=== PATIENT | female | born 1965 | race Caucasian/White ===

== ENCOUNTER 2019-07-09 08:36 | Outpatient (CLI) | payer BC, SELFPAY ==
--- NOTE | 2019-07-09 11:00 | NEURO_ITS ---
Patient Number: [id number] Impression: # Complains of upper extremity discomfort. # Left ulnar neuropathy across the elbow. # No Carpal Tunnel Syndrome. # Normal needle/EMG exam. Nerve Conduction Studies Anti Sensory Summary Table Stim Site NR Peak (ms) P-T Amp (?V) Site1 Site2 Delta-P (ms) Dist (cm) Martell (m/s) Left Median Anti Sensory (2-3nd Digit) Wrist 2.9 89.5 Wrist 2-3nd Digit 2.9 14.0 48 Wrist 3.0 111.5 Wrist 2-3nd Digit 2.9 14.0 48 Right Median Anti Sensory (2-3nd Digit) Wrist 2.8 76.6 Wrist 2-3nd Digit 2.8 14.0 50 Wrist 2.8 72.3 Wrist 2-3nd Digit 2.8 14.0 50 Left Radial Anti Sensory (Base 1st Digit) Wrist 2.0 32.3 Wrist Base 1st Digit 2.0 0.0 Right Radial Anti Sensory (Base 1st Digit) Wrist 2.4 28.2 Wrist Base 1st Digit 2.4 0.0 Left Ulnar Anti Sensory (5th Digit) Wrist 2.7 61.8 Wrist 5th Digit 2.7 14.0 52 Right Ulnar Anti Sensory (5th Digit) Wrist 2.5 73.4 Wrist 5th Digit 2.5 14.0 56 Motor Summary Table Stim Site NR Onset (ms) O-P Amp (mV) Site1 Site2 Delta-0 (ms) Dist (cm) Martell (m/s) Left Median Motor (Abd Poll Brev) Wrist 3.1 3.0 Elbow Wrist 5.3 29.0 55 Elbow 8.4 4.4 Right Median Motor (Abd Poll Brev) Wrist 3.4 2.2 Elbow Wrist 4.2 26.0 62 Elbow 7.6 1.7 Left Ulnar Motor (Abd Dig Minimi) Wrist 2.9 6.4 A Elbow Wrist 5.7 28.0 49 A Elbow 8.6 4.2 B Elbow Wrist 3.4 23.0 68 B Elbow 6.3 4.1 Right Ulnar Motor (Abd Dig Minimi) Wrist 2.7 4.4 A Elbow Wrist 4.8 29.0 60 A Elbow 7.5 3.9 F Wave Studies NR F-Lat (ms) L-R F-Lat (ms) Left Median (Mrkrs) (Abd Poll Brev) 27.13 1.55 Right Median (Mrkrs) (Abd Poll Brev) 28.67 1.55 Left Ulnar (Mrkrs) (Abd Dig Min) 28.17 0.95 Right Ulnar (Mrkrs) (Abd Dig Min) 27.21 0.95 EMG Side Muscle Nerve Root Ins Act Fibs Amp Dur Recrt Comment Right 1stDorInt Ulnar C8-T1 Nml Nml Nml Nml Nml Right Ext Indicis Radial (Post Int) C7-8 Nml Nml Nml Nml Nml Right Ext Digitorum Radial (Post Int) C7-8 Nml Nml Nml Nml Nml Right BrachioRad Radial C5-6 Nml Nml Nml Nml Nml Right PronatorTeres Median C6-7 Nml Nml Nml Nml Nml Right Abd Poll Brev Median C8-T1 Nml Nml Nml Nml Nml Left 1stDorInt Ulnar C8-T1 Nml Nml Nml Nml Nml Left Ext Indicis Radial (Post Int) C7-8 Nml Nml Nml Nml Nml Left Ext Digitorum Radial (Post Int) C7-8 Nml Nml Nml Nml Nml Left BrachioRad Radial C5-6 Nml Nml Nml Nml Nml Left PronatorTeres Median C6-7 Nml Nml Nml Nml Nml Left Abd Poll Brev Median C8-T1 Nml Nml Nml Nml Nml MTDD
== END 2019-07-09 08:37 | disposition home or self-care (01) ==
LOC: ANHNEURO 08:38
PROVIDERS: PCP Family Medicine; Visit Provider Physician Assistant
DX: G56.22 Lesion of ulnar nerve, left upper limb (principal)
CPT/HCPCS: 95886; 95911

== ENCOUNTER 2020-12-17 15:01 | Emergency (ER) | payer BC, SELFPAY ==
[2020-12-17 15:05] VITALS: PULSE 80; RESP 18; TEMP 36.3; O2SAT 100
--- NOTE | 2020-12-17 15:23 | ECG_ITS ---
Measurements Intervals [place] Rate: 75 P: 52 CO: 150 QRS: 54 QRSD: 84 T: 62 QT: 360 QTc: 402 Interpretive Statements SINUS RHYTHM BASELINE ARTIFACT- I, II, III, AVR, AVF NORMAL ECG Electronically Signed On 12-19-2020 7:49:08 CDT by Nick Collins D.O.
[2020-12-17] MEDS: ALPRAZolam (*CRX) 0.5 MG TABLET PO (15:38)
[2020-12-17 15:56] LABS: Basophils Absolute Auto 0.03 K/mm3 (0.00-0.10); Basophils Percent Auto 0.7 % (0.0-1.0); Eosinophils Absolute Auto 0.09 K/mm3 (0.02-0.50); Eosinophils Percent Auto 2.1 % (1.0-6.0); Hematocrit 43.5 % (35.0-49.0); Hemoglobin 14.8 g/dL (12.0-15.0); Immature Granulocyte Absolute 0.01 K/mm3 (0.00-0.00); Immature Granulocyte Percent A 0.2 % (0.0-0.0); Lymphocytes Absolute Auto 1.23 K/mm3 (1.10-4.50); Lymphocytes Percent Auto 28.9 % (18.0-42.0); Mean Corpuscular Hemoglobin 29.3 pg (27.0-31.0); Mean Corpuscular Volume 86.1 fL (78.0-102.0); Mean Platelet Volume 9.8 fl (9.2-11.8); Monocytes Absolute Auto 0.32 K/mm3 (0.10-0.90); Monocytes Percent Auto 7.5 % (2.0-11.0); Neutrophils Absolute Auto 2.6 K/mm3 (1.7-7.2); Neutrophils Percent Auto 60.6 % (50.0-70.0); Platelet Count Result 194 K/mm3 (150-420); Red Blood Count 5.05 M/mm3 (4.20-5.40); Red Cell Distribution Width 11.8 % (11.6-14.4); White Blood Count 4.3 K/mm3 (4.8-10.8)
[2020-12-17 16:14] LABS: D Dimer 0.22 mg/L (0.19-0.50)
[2020-12-17 16:22] LABS: Alanine Aminotransferase 23 U/L (14-59); Albumin Level 3.9 g/dL (3.4-5.0); Alkaline Phosphatase 66 U/L (46-116); Anion Gap 9 mmol/L (8-16); Aspartate Amino Transferase 17 U/L (15-37); Bilirubin,Total 0.5 mg/dL (0.00-1.00); Blood Urea Nitrogen 16 mg/dL (7-18); Calcium 9.6 mg/dL (8.5-10.1); Carbon Dioxide 30 mmol/L (21-32); Chloride 104 mmol/L (98-108); Estimated CRCL calculation 54 ml/min; Estimated Glomerular Filt Rate 56; Glucose 91 mg/dL (70-99); Lipase 127 U/L (73-393); NT Pro B Type Natriuretic Pept 189 pg/mL (0-125); Osmolality Calculated 297 mOsm/kg (285-295); Potassium 3.5 mmol/L (3.5-5.1); Sodium 143 mmol/L (136-145); Total Protein 6.7 g/dL (6.4-8.2)
[2020-12-17 16:38] LABS: Thyroid Stimulating Hormone 1.11 uIU/mL (0.36-3.74)
--- NOTE | 2020-12-17 16:41 | ED.CHESTPAIN ---
HPI - Chest Pain General Chief Complaint: Chest Pain Stated Complaint: chest pain Source: patient and family Mode of arrival: ambulatory Limitations: no limitations History of Present Illness HPI narrative: this is a 55-year-old female with a history of anxiety presents with chest discomfort and epigastric discomfort patient says she has a history of mitral valve prolapse and does occasionally have episodes of palpitations with a racing heart rate. Currently there is some some chest discomfort that rates at about a 2/10 in, is a typical non reproducible some tenderness in the epigastric area no shortness of breath no fever chills nonsmoker no family history of heart attacks. Currently there is no fever chills no nausea vomiting no dysuria no hematuria no abdominal pain no flank pain. complaint: chest discomfort Onset (ago): day(s) Timing of current episode: episodic Prior episodes: Yes Onset: during rest Pain location: substernal and epigastric Pain radiation: none Severity: mild Related Data Allergies Allergy/AdvReac Type Severity Reaction Status Date / Time No Known Allergies Allergy Unknown Unverified 12/17/20 15:21 Review of Systems Review of Systems: All systems reviewed & are unremarkable except as noted in HPI and below PMFSH Past Medical History Medical History Anxiety Family History Family History Mother Family history of cardiovascular disease, Onset Age: 70 Sibling Carcinoma of colon, Onset Age: 30 Grandparent Family history of malignant neoplasm of breast Other Family history of mental disorder Social History Social History Smoking status: Never smoker Alcohol intake: current Exam Const: General: no acute distress and alert Orientation/consciousness: patient oriented x3 Limitations: altered mental status HENMT: Head: normal to inspection Eyes: Conjunctivae: conjunctivae normal Pupils: Equal, round and reactive pupils present Cardio: Rate: regular rate Rhythm: regular rhythm GI: GI Palp: Yes Soft to palpation Percussion: Yes normal to percussion : General: Yes no CVA tenderness Skin: General skin exam: normal color Rashes: no rashes Neuro: General: patient oriented x3 and moves all extremities Extrem: General: normal to inspection and no pedal edema Psych: Mental Status: mental status grossly normal Affect: normal affect and Anxious affect present Course Course Emergency Course: Labs reviewed with some patient and with her and as well as EKG advised to take her current dose of Xanax as needed and follow up with her primary care physician if symptoms persist or worsen. Vital Signs Vital signs: Vital Signs Temperature 36.3 C L 12/17/20 15:05 Pulse Rate 80 12/17/20 15:05 Respiratory Rate 18 12/17/20 15:05 Pulse Oximetry 100 12/17/20 15:05 Temperature 36.3 C L 12/17/20 15:05 Pulse Rate 80 12/17/20 15:05 Respiratory Rate 18 12/17/20 15:05 Pulse Oximetry 100 12/17/20 15:05 MDM - Chest Pain Lab Data Result diagrams: 12/17/20 15:30 12/17/20 15:30 Labs: Lab Results 12/17/20 12/17/20 12/17/20 Range/Units 15:30 15:30 15:30 WBC 4.3 L (4.8-10.8) K/mm3 RBC 5.05 (4.20-5.40) M/mm3 Hgb 14.8 (12.0-15.0) g/dL Hct 43.5 (35.0-49.0) % MCV 86.1 (78.0-102.0) fL MCH 29.3 (27.0-31.0) pg MCHC 34.0 (32.0-36.0) g/dL RDW 11.8 (11.6-14.4) % Plt Count 194 (150-420) K/mm3 MPV 9.8 (9.2-11.8) fl Immature Gran % (Auto) 0.2 H (0.0-0.0) % Neut % (Auto) 60.6 (50.0-70.0) % Lymph % (Auto) 28.9 (18.0-42.0) % [place] % (Auto) 7.5 (2.0-11.0) % Eos % (Auto) 2.1 (1.0-6.0) % Baso % (Auto) 0.7 (0.0-1.0) % Lymph # (Auto) 1.23 (1.10-4.50) K/mm3 [place] # (Auto) 0.32
[2020-12-17 16:51] VITALS: BP 128/78; PULSE 79; RESP 16; TEMP 36.6; O2SAT 100
== END 2020-12-17 17:00 | disposition home or self-care (01) ==
PROVIDERS: Emergency Provider Emergency Medicine
DX: R07.89 Other chest pain (principal); F41.9 Anxiety disorder, unspecified
CPT/HCPCS: 36415; 80053; 83690; 83880; 84443; 84484; 85025; 85380; 93005; 99282; 99284; A9270

== ENCOUNTER 2021-01-11 15:15 | Outpatient (CLI) | payer BC, SELFPAY ==
--- NOTE | ~2021-01-11 | MM_ITS ---
EXAMINATION: MM screening [facility] BI w razia HISTORY: Screening mammogram TECHNIQUE: Craniocaudal and mediolateral oblique 3-D tomosynthesis images were obtained and synthetic 2-D images were generated. CAD analysis was submitted and interpreted. COMPARISON: 02/14/2018, 01/31/2018, 06/16/2014 BREAST PARENCHYMAL COMPOSITION: The breasts are heterogeneously dense, which may obscure small masses . FINDINGS: There is no evidence of suspicious mass, calcification, or architectural distortion to sugg est malignancy in either breast. There has been no suspicious interval change. IMPRESSION: 1. No mammographic evidence of malignancy. 2. Recommend routine screening mammography in one year. BI-RADS Category 1: Negative Reviewed, dictated and finalized at location A. 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
== END 2021-01-11 15:16 | disposition home or self-care (01) ==
LOC: ANHIMG 15:17
PROVIDERS: PCP Family Medicine; Visit Provider Physician Assistant
DX: Z12.31 Encounter for screening mammogram for malignant neoplasm of breast (principal)
CPT/HCPCS: 77063; 77067

== ENCOUNTER 2022-03-05 00:37 | Day surgery (SDC) | payer OTHER, SELFPAY ==
[2022-02-21 13:40] VITALS: BMI 21.4
[2022-03-05 06:52] VITALS: BP 123/73; PULSE 76; RESP 18; TEMP 36.4; O2SAT 100
[2022-03-05] MEDS: LACTATED RINGERS 1,000 ML 150 ML IV CONT (07:03)
--- NOTE | 2022-03-05 07:22 | PM.HPGS ---
History of Present Illness History of Present Illness Consent: Risks, benefits, and alternatives have been discussed and questions answered. Patient agrees to proceed with procedure. Chief complaint: neoplasm screening, fam hx colon cancer Narrative: Trisha Rg is a 56 year old female Presents for screening colonoscopy. Patient's current weight appetite and bowel movements are normal. She denies abdominal pain. She has had no bleeding. Family history is significant that her sister has had colon cancer. Previous colonoscopy 2014 was unremarkable aside from a small lymphoid aggregate type polyp. Review of Systems Review of Systems: Review of systems noncontributory. [facility] Past Medical History Medical History Anxiety Family History Family History Mother Family history of cardiovascular disease, Onset Age: 70 Sibling Carcinoma of colon, Onset Age: 30 Grandparent Family history of malignant neoplasm of breast Other Family history of mental disorder Social History Social History Smoking status: Never smoker Alcohol intake: current Substance use type: does not use Living arrangements: with family Spiritual care concerns: No Meds Home Medications and Allergies Home Medications Medication Instructions Recorded Confirmed Type cetirizine 10 mg capsule (Zyrtec) 10 mg PO DAILY PRN Allergy Symptoms 10/30/21 02/21/22 History alprazolam 0.5 mg tablet 0.5 mg PO TID PRN Anxiety #90 tabs 11/21/21 02/21/22 Rx sodium,potassium,mag sulfates 17.5 See Rx Instructions PO .COMPLEX 01/16/22 Rx gram-3.13 gram-1.6 gram oral soln #354 mL (Suprep Bowel Prep Kit) medroxyprogesterone 2.5 mg tablet 2.5 mg PO DAILY #90 tabs 01/18/22 02/21/22 Rx estradiol 0.5 mg tablet 0.5 mg PO DAILY #90 tabs 01/19/22 02/21/22 Rx Allergies Allergy/AdvReac Type Severity Reaction Status Date / Time No Known Allergies Allergy Unknown Verified 03/05/22 06:51 Vital Signs Vital Signs - 24 hr 03/05/22 06:52 Temperature 97.6 F Pulse Rate 76 Respiratory Rate 18 Blood Pressure 123/73 Pulse Oximetry 100 Oxygen Delivery Room Air Exam Narrative: Physical exam reveals patient to be alert. Vital signs stable. HEENT exam is unremarkable. Patient is anicteric. Lungs are clear to auscultation and percussion. Heart is without murmur or extra sounds. Abdomen bowel sounds are present soft nontender with no hepatosplenomegaly. Digital external rectal exam is normal. Assessment and Plan Assessment and plan (1) Family history of colon cancer: Code(s): Z80.0 - Family history of malignant neoplasm of digestive organs Status: Acute Assessment and Plan: Patient has a family history of colon cancer in her sister. Plan for surveillance colonoscopy now. Consider this at intervals in the future.
--- NOTE | 2022-03-05 07:56 | P.PNAN_ITS ---
Anes - Initial Pre Proc Eval Procedure: Operation Date: 03/05/22 08:00 Proposed Procedures p Screening Colonoscopy - Brannon Stoddard MD Date/Time: 03/05/22 07:56 Surgeon: Brannon Stoddard MD Pre Op Diagnosis: neoplasm screening, fam hx colon cancer Patient Data Age: 56 Gender: F Height: 1.7 m Weight: 62.7 kg Last Vital Signs Temp 97.6 F 03/05/22 06:52 Pulse 76 03/05/22 06:52 Resp 18 03/05/22 06:52 BP 123/73 03/05/22 06:52 Pulse Ox 100 03/05/22 06:52 O2 Del Method Room Air 03/05/22 06:52 Allergies Allergy/AdvReac Type Severity Reaction Status Date / Time No Known Allergies Allergy Unknown Verified 03/05/22 06:51 Home Medications Medication Instructions Recorded Confirmed Type cetirizine 10 mg capsule (Zyrtec) 10 mg PO DAILY PRN Allergy Symptoms 10/30/21 02/21/22 History alprazolam 0.5 mg tablet 0.5 mg PO TID PRN Anxiety #90 tabs 11/21/21 02/21/22 Rx sodium,potassium,mag sulfates 17.5 See Rx Instructions PO .COMPLEX 01/16/22 Rx gram-3.13 gram-1.6 gram oral soln #354 mL (Suprep Bowel Prep Kit) medroxyprogesterone 2.5 mg tablet 2.5 mg PO DAILY #90 tabs 01/18/22 02/21/22 Rx estradiol 0.5 mg tablet 0.5 mg PO DAILY #90 tabs 01/19/22 02/21/22 Rx Patient hx anesthesia problems: none Family hx anesthesia problems: none Results Review: All pre-operative results and documents have been reviewed as part of the pre- operative evaluation. [facility] Past Medical History Medical History Anxiety Family History Family History Mother Family history of cardiovascular disease, Onset Age: 70 Sibling Carcinoma of colon, Onset Age: 30 Grandparent Family history of malignant neoplasm of breast Other Family history of mental disorder Social History Social History (Reviewed 10/30/21 @ 13:07 by EVAN Lange Smoking status: Never smoker Alcohol intake: current Substance use type: does not use Living arrangements: with family Spiritual care concerns: No Anes - Eval Final PreProcedure Day of Procedure 03/05/22 07:56 Patient weight: normal Heart: regular rate and rhythm Lungs: clear to auscultation Airway: Mallampati scale class II Neurological: alert and oriented Last oral intake: >/= 8 hours ASA classification: II Emergent: no Anesthetic plan: proceed Anesthesia type and monitoring: general GIVS and standard monitoring Results Review: All pre-operative results and documents have been reviewed as part of the pre- operative evaluation. Informed Consent: The patient's anesthetic plan and its attendant risks and benefits were discussed with the patient/family/POA. Questions were solicited and answers provided to the satisfaction of the patient/family/POA.
[2022-03-05 08:22] VITALS: BP 97/62; PULSE 71; RESP 18; O2SAT 98
[2022-03-05 08:32] VITALS: BP 85/63; PULSE 73; RESP 18; O2SAT 100
[2022-03-05 08:39] VITALS: BP 108/71; PULSE 73; RESP 18; O2SAT 100
== END 2022-03-05 08:50 | disposition home or self-care (01) ==
PROVIDERS: PCP Emergency Medicine; Visit Provider Internal Medicine Gastroenterology
PROC: 0DJD8ZZ Inspection of Lower Intestinal Tract, Via Natural or Artificial Opening Endoscopic (ICD-10-PCS; CPT 45378; principal; 2022-03-05 08:00)
DX: Z12.11 Encounter for screening for malignant neoplasm of colon (principal); Z80.0 Family history of malignant neoplasm of digestive organs; F41.9 Anxiety disorder, unspecified
CPT/HCPCS: 45378; J2704; J7120

== ENCOUNTER → 2022-04-24 13:41 | Outpatient (CLI) | payer OTHER, SELFPAY ==
--- NOTE | ~2022-04-24 | MM_ITS ---
EXAMINATION: MM screening [facility] BI w razia HISTORY: Screening mammogram TECHNIQUE: Craniocaudal and mediolateral oblique 3-D tomosynthesis images were obtained and synthetic 2-D images were generated. CAD analysis was submitted and interpreted. COMPARISON: 01/11/2021, 12/07/2017, 01/31/2018 BREAST PARENCHYMAL COMPOSITION: The breasts are heterogeneously dense, which may obscure small masses . FINDINGS: No suspicious mass, calcification, or architectural distortion are identified in either thalia ast to suggest malignancy. There has been no suspicious interval change. IMPRESSION: 1. No mammographic evidence of malignancy. 2. Recommend routine screening mammography in one year. BI-RADS Category 1: Negative Reviewed, dictated and finalized at location A. 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
== END ==
PROVIDERS: PCP Emergency Medicine; Visit Provider Physician Assistant
DX: Z12.31 Encounter for screening mammogram for malignant neoplasm of breast (principal); Z80.0 Family history of malignant neoplasm of digestive organs
CPT/HCPCS: 77063; 77067

== ENCOUNTER 2023-05-27 15:25 | Outpatient (NON) | payer OTHER, SELFPAY | END 2023-05-27 15:26 | disposition home or self-care (01) | LOC: ANHGOSHLAB 15:26 | PROVIDERS: PCP Family Medicine; Visit Provider Nurse Practitioner Family | DX: R30.0 Dysuria (principal) | CPT/HCPCS: 87086 ==

== ENCOUNTER 2023-10-31 12:45 | Outpatient (CLI) | payer BC, SELFPAY ==
--- NOTE | ~2023-10-31 | MM_ITS ---
EXAMINATION: MM screening [facility] BI w razia HISTORY: Screening mammogram TECHNIQUE: Craniocaudal and mediolateral oblique 3-D tomosynthesis images were obtained and synthetic 2-D images were generated. CAD analysis was submitted and interpreted. COMPARISON: 04/24/2022, 12/22/2020, 02/06/2018 BREAST PARENCHYMAL COMPOSITION:Not Dense. There are scattered areas of fibroglandular density. FINDINGS: No suspicious mass, calcification, or architectural distortion are identified in either thalia ast to suggest malignancy. There has been no suspicious interval change. IMPRESSION: No mammographic evidence of malignancy. Recommend routine screening mammography in one year. BI-RADS Category 1: Negative Reviewed, dictated and finalized at location .
== END 2023-10-31 12:46 | disposition home or self-care (01) ==
LOC: MICIMG 12:46
PROVIDERS: PCP Emergency Medicine; Visit Provider Emergency Medicine
DX: Z12.31 Encounter for screening mammogram for malignant neoplasm of breast (principal)
CPT/HCPCS: 77063; 77067

== ENCOUNTER 2024-10-01 12:21 | Outpatient (NON) | payer BC, SELFPAY | END 2024-10-01 12:22 | disposition home or self-care (01) | PROVIDERS: PCP Family Medicine; Visit Provider Family Medicine | DX: Z01.419 Encounter for gynecological examination (general) (routine) without abnormal findings (principal) | CPT/HCPCS: 87623; 88175; G0145 ==

== ENCOUNTER 2024-10-08 09:31 | Outpatient (NON) | payer BC, SELFPAY ==
--- NOTE | 2024-10-07 | S_PTH ---
PATIENT: Trisha Rg LOC: [facility] #:[id number] AGE/SX: 58/F ROOM: RE10/08/[address]: Hanny Campos MD : 1965 BED: DIS: 10/08/2024 SPEC #: [id number] RECD: 10/08/24 12:05 STATUS: ASHLEY REQ #: [id number] BELINDA: 10/07/24 00:[address]: Hanny Campos DEPT: [facility] Surgical RECD BY: Leonila Alexander Tissues: A - Biopsy Procedures: Hematoxylin and Eosin Stain Gross and Microscopic Level 4
== END 2024-10-08 09:32 | disposition home or self-care (01) ==
LOC: ANHLAB 09:32
PROVIDERS: PCP Family Medicine; Visit Provider Family Medicine
DX: D22.62 Melanocytic nevi of left upper limb, including shoulder (principal)
CPT/HCPCS: 88305

== ENCOUNTER 2024-11-02 11:51 | Outpatient (CLI) | payer BC, SELFPAY ==
--- NOTE | ~2024-11-02 | MM_ITS ---
EXAMINATION: MM screening [facility] BI w [facility] HISTORY: Screening TECHNIQUE: Craniocaudal and mediolateral oblique 3-D tomosynthesis images were obtained and synthetic 2-D images were generated. CAD analysis was submitted and interpreted. COMPARISON: 04/24/2022 BREAST PARENCHYMAL COMPOSITION: The breasts are heterogeneously dense, which may obscure small masses. FINDINGS: There is no evidence of suspicious mass, calcification, or architectural distortion in either breast to suggest malignancy. There has been no significant interval change. IMPRESSION: 1. No mammographic evidence of malignancy. Recommend routine screening mammography in one year. BI-RADS Category 1: Negative Reviewed, dictated and finalized at location Q. IMPRESSION: 1. No mammographic evidence of malignancy. Recommend routine screening mammogra phy in one year. BI-RADS Category 1: Negative
== END 2024-11-02 11:52 | disposition home or self-care (01) ==
LOC: CHSIMG 11:52
PROVIDERS: PCP Family Medicine; Visit Provider Family Medicine
DX: Z12.31 Encounter for screening mammogram for malignant neoplasm of breast (principal)
CPT/HCPCS: 77063; 77067

== ENCOUNTER 2024-11-23 08:22 | Outpatient (CLI) | payer BC, SELFPAY ==
[2024-11-23 09:06] LABS: Alanine Aminotransferase 26 U/L (6-35); Albumin Level 4.8 g/dL (3.5-5.1); Alkaline Phosphatase 76 U/L (38-126); Anion Gap 10 mmol/L (4-12); Aspartate Amino Transferase 38 U/L (14-36); Bilirubin,Total 0.9 mg/dL (0.2-1.3); Blood Urea Nitrogen 17 mg/dL (7-17); Calcium 10.0 mg/dL (8.4-10.2); Carbon Dioxide 29 mmol/L (22-30); Chloride 104 mmol/L (98-107); Cholesterol 231 mg/dL (0-200); Estimated Glomerular Filt Rate > 60; Glucose 95 mg/dL (65-110); HDL Direct 99 mg/dL; Osmolality Calculated 297 mOsm/kg (285-295); Potassium 4.0 mmol/L (3.4-5.0); Sodium 143 mmol/L (137-145); Total Protein 8.4 g/dL (6.3-8.2); Triglycerides 57 mg/dL (<150)
[2024-11-23 09:37] LABS: Thyroid Stimulating Hormone 1.830 uIU/mL (0.465-4.680)
[2024-11-23 09:56] LABS: Vitamin B12 569.0 pg/mL (239-931)
== END 2024-11-23 08:23 | disposition home or self-care (01) ==
LOC: CHSLAB 08:24
PROVIDERS: PCP Family Medicine; Visit Provider Family Medicine
DX: E78.2 Mixed hyperlipidemia (principal); N95.1 Menopausal and female climacteric states; G62.9 Polyneuropathy, unspecified
CPT/HCPCS: 36415; 80053; 80061; 82306; 82607; 84443; 86803